=== PATIENT | female | born 1980 | race Two or more races ===

== ENCOUNTER 2019-07-18 06:12 | Emergency (ER) | payer SELFPAY ==
[~2019-07-18] VITALS: Ht 160 cm; Wt 118.4 kg
[2019-07-18 07:59] VITALS: BP 124/84
[2019-07-18] MEDS ORDERED: HYDROcodone-ACET 7.5/325MG TAB PO ONE (08:00)
== END 2019-07-18 08:27 | disposition home or self-care (01) ==
LOC: ER 06:12
DX: N75.1 Abscess of Bartholin's gland (principal); Z48.00 Encounter for change or removal of nonsurgical wound dressing